=== PATIENT | male | born 1985 | race African-American/Black ===

== ENCOUNTER 2020-04-27 22:30 | Emergency (ER) | payer OTHER ==
[~2020-04-27] VITALS: Ht 190.5 cm; Wt 68.0 kg
--- NOTE | 2020-04-27 22:45 | NUR ---
ED Nurse Note: PT brought in by ambulance from [facility] for C/O sob x 5 hours ago. pt reports having intermittent dry cough since today as well.
[2020-04-27 22:50] VITALS: BP 126/87
[2020-04-27] MEDS ORDERED: Albuterol 90mcg Inhaler 8gm INH ONE (23:15)
--- NOTE | 2020-04-27 23:19 | NUR ---
ED Nurse Note: x ray being taken at bedside.
--- NOTE | 2020-04-27 23:44 | Diagnostic Imaging Report ---
EXAM: XR Chest, 1 View CLINICAL HISTORY: SOB TECHNIQUE: Frontal view of the chest. COMPARISON: No relevant prior studies available. FINDINGS: No radiographic evidence of acute cardiopulmonary disease on single AP chest portable radiograph
[2020-04-27] MEDS ORDERED: PREDNISONE20 MG ORAL (23:51)
[2020-04-27] MEDS ORDERED: ALBUTEROL SULF8.5 G1 INH (23:51)
[2020-04-27 23:57] VITALS: BP 119/84
--- NOTE | 2020-04-27 23:57 | NUR ---
ER DISCHARGE NOTE: Patient is cleared to be discharged per ERMD, pt is aox4, on room air, with stable vital signs. pt was given dc and prescription instructions, pt was able to verbalize understanding, pt id band removed without complications. pt is able to ambulate with steady gait. pt took all belongings.
--- NOTE | 2020-04-27 23:59 | Emergency Room Report ---
History of Present Illness General Chief Complaint: Dyspnea/Respdistress Source: Patient Present Illness HPI Disclaimer: Please note that this report is being documented using [employer] technology. This can lead to erroneous entry secondary to incorrect interpretation by the dictating instrument. HPI: 34-year-old male no reported past medical history presented for wheezing. He states he has been wheezing for the past 4 to 5 days. Denies history of asthma. Denies fever or coughing. No nausea or vomiting. Patient was an active smoker but quit 1 week ago. He states his chest feels tight with breathing. PMH: Denies any past medical history PSH: Reviewed Social Hx: Former smoker occasional drinking no drug use Allergies: Coded Allergies: No Known Allergies (Unverified , 04/27/20) COVID-19 Screening Contact w/high risk pt: No Recent Travel to affected area: No Experienced COVID-19 symptoms?: No COVID-19 Testing performed MEDICAL IMAGING TECH: No Patient History Reviewed Nursing Documentation: PMH: Agreed; PSxH: Agreed Nursing Documentation-PMH Past Medical History: No Stated History Review of Systems All Other Systems: negative except mentioned in HPI Physical Exam Vital Signs Date Time Temp Pulse Resp B/P (MAP) Pulse Ox O2 Delivery O2 Flow Rate FiO2 04/27/20 22:49 98.8 65 16 126/87 (100) 100 Room Air Sp02 EP Interpretation: reviewed, normal General Appearance: well appearing, no apparent distress Head: normocephalic, atraumatic Eyes: bilateral eye PERRL, bilateral eye EOMI ENT: hearing grossly normal, moist mucus membranes Neck: full range of motion, supple Respiratory: no rhonchi, no respiratory distress, no retraction, wheezing - Expiratory wheezing noted bilaterally Cardiovascular #1: normal peripheral pulses, regular rate, rhythm, no murmur Gastrointestinal: non tender, soft, non-distended, no guarding Neurologic: alert, oriented x3, no focal defects Skin: normal color, warm/dry Medical Decision Making Diagnostic Impression: Primary Impression: Bronchospasm ER Course MDM-patient presented for shortness of breath and wheezing. He was wheezing on exam. Denies history of asthma. He was afebrile nontoxic on exam. No respiratory distress. Differential included bronchitis, bronchospasm, new onset asthma to name a few. On my exam again he was in no distress. He was given albuterol treatment once in the ER with improvement of his symptoms. He was started on p.o. prednisone. Chest x-ray ordered showed no acute infiltrate. Patient will be discharged home with albuterol as needed for shortness of breath and wheezing and prednisone for 4 days. Follow-up PMD. Avoid smoking. Stable for discharge. Chest X-Ray Diagnostic Results Chest X-Ray Diagnostic Results : Chest X-Ray Ordered: Yes # of Views/Limited/Complete: 1 View Indication: Shortness of Breath EP Interpretation: Yes Interpretation: no consolidation, no effusion, no pneumothorax Impression: No acute disease Electronically Signed by: Carlo Pressley MD Last Vital Signs Date Time Temp Pulse Resp B/P (MAP) Pulse Ox O2 Delivery O2 Flow Rate FiO2 04/27/20 22:50 70 16 Room Air 04/27/20 22:50 98.8 126/87 98 Disposition: HOME, SELF-CARE Condition: Stable Scripts Prednisone* (PREDNISONE*) 20 Mg Tablet 40 MG ORAL DAILY, #8 TAB Prov: Carlo Pressley M.D. 04/27/20 Albuterol Sulfate* (Albuterol Sulfate Hfa*) 8.5 Gm Hfa.aer.ad 2 PUFF INH Q4H PRN for Shortness of Breath, #1 INH Prov: Carlo Pressley M.D. 04/27/20 Patient Instructions: Bronchospasm, Adult, [id number] Additional Instructions: Patient is instructed to follow-up with her primary care doctor, primary care clinic or county clinic in 1 to 2 days. Patient instructed to return for any worsening symptoms or concerns. Disclaimer: Please note that this report is being documented using [employer] technology. This can lead to erroneous entry secondary to incorrect interpretation by the dictating instrument. Carlo Pressley M.D. Apr 27, 2020 23:59
== END 2020-04-27 23:57 | disposition home or self-care (01) ==
LOC: EDBD 22:30 → EMR 23:00
DX: J98.01 Acute bronchospasm (principal); Z87.891 Personal history of nicotine dependence
CPT/HCPCS: 71045; J7512; Z7502; 99283